=== PATIENT | male | born 1945 | race Caucasian/White ===

== ENCOUNTER 2019-01-31 13:29 | Emergency (ER) | payer BC, OTHER ==
[2019-01-31] MEDS ORDERED: LEVALBUTEROL 0.63 MG/3 ML NEB ONE (14:21)
[2019-01-31] MEDS ORDERED: LEVALBUTEROL 1.25 MG/3 ML NEB ONE (14:22)
[2019-01-31 14:32] LABS: Absolute Lymphocytes (CBC) 1.4 K/uL (0.7-4.9); Absolute Monocytes 0.7 K/uL (0.1-1.3); Absolute Neutrophil 6.8 K/uL (1.8-8.0); Eosinophils % 0.9 % (0-4.4); Hematocrit 42.5 % (39.6-49.0); Lymphocytes % 15.6 % (15.3-44.8); MPV 8.5 fL (7.6-11.3); Monocytes % 7.9 % (3.3-12.3); RBC Red Blood Cell Count 5.35 M/uL (4.33-5.43)
[2019-01-31 14:33] LABS: Protime INR 0.94
--- NOTE | 2019-01-31 14:41 | RAD REPORT ---
EXAM DESCRIPTION: RAD - Chest Single View - 01/31/2019 2:30 pm CLINICAL HISTORY: SOB Chest pain. COMPARISON: Chest Pa And Lat (2 Views) dated 12/26/2018; Chest Pa And Lat (2 Views) dated 11/25/2018; Thorax W/ Con dated 11/25/2018 FINDINGS: Portable technique limits examination quality. The right hemidiaphragm is elevated with atelectasis in the right lung base. The left lung is grossly clear. The heart is normal in size. No displaced fractures.
[2019-01-31 15:02] LABS: ALT/SGPT 48 U/L (12-78); AST/SGOT 36 U/L (15-37); Albumin 3.6 g/dL (3.4-5.0); Alkaline Phosphatase 111 U/L (45-117); BUN Blood Urea Nitrogen 11 mg/dL (7-18); Bicarbonate 26 mmol/L (21-32); Bilirubin Direct 0.1 mg/dL (0-0.2); Bilirubin Total 0.6 mg/dL (0.2-1.0); Glucose Level 178 mg/dL (74-106); NT PRO-BNP 57 pg/mL (<125); Protein, Total 7.5 g/dL (6.4-8.2); Sodium Level 139 mmol/L (136-145); Troponin (Emerg Dept Use Only) < 0.02 ng/mL (0.0-0.045)
--- NOTE | 2019-01-31 15:02 | EKG ---
Test Date: 2019-01-31 Test Time: 13:41:21 Health Officer: LISANDRA MEASUREMENT RESULTS: Intervals: Rate: 99 AK: 184 QRSD: 132 QT: 370 QTc: 474 [place]: P: 41 AK: 184 QRS: 55 T: 16 INTERPRETIVE STATEMENTS: Normal sinus rhythm Right bundle branch block Abnormal ECG No previous ECG available for comparison Electronically Signed On 01-31-19 15:01:40 CDT by Sae Miles
--- OUTSIDE RECORDS SUMMARY | 2019-01-31 15:12 | XMS REPORT ---
:1945 [facility] Address [address] [place] [address] Dr. Johnson [address] [place] [id number] Care Team Providers Name Role Phone Unavailable Unavailable Unavailable Problems This patient has no known problems. Allergies, Adverse Reactions, Alerts This patient has no known allergies or adverse reactions. Medications This patient has no known medications.
--- NOTE | 2019-01-31 17:41 | RAD REPORT ---
EXAM DESCRIPTION: CT - Chest For Pe Angio - 01/31/2019 4:59 pm CLINICAL HISTORY: sob COMPARISON: November 2018. TECHNIQUE: Dynamically enhanced axial 3 mm thick images of the chest were obtained during administra tion of <100> mL Isovue 370 IV contrast. Coronal and oblique reconstruction images were generated and reviewed. Exam utilizes a protocol for optimal evaluation of pulmonary arterial tree. Maximum intensity projections 3D imaging was utilized All CT scans are performed using dose optimization technique as appropriate and may include automated exposure control or mA/KV adjustment according to patient size. FINDINGS: A pulmonary embolus is not seen. The proximal descending thoracic aorta measures 4 centimeters. A pleural effusion is not seen. A pericardial effusion is not seen. Right lower lobe opacity. Fatty liver IMPRESSION: Negative for a pulmonary embolism. Right lower lobe opacity likely representing atelectasis. This should be followed until is clear to h elp exclude a post obstructive process/underlying mass
--- NOTE | 2019-01-31 17:53 | ER ---
Nurse's Notes [facility] Name: Ezequiel Tomlinson Age: 73 yrs Sex: Male : 1945 Arrival Date: 01/31/2019 Time: 13:38 Bed 7 Private MD: Diagnosis: Shortness of breath Presentation: 01/31 14:00 Acuity: ROBB 2 ae4 14:22 Presenting complaint: Patient states: Patient states he returned to work today after a ae4 week off and was told he was "laid off" and began having shortness of breath. Transition of care: patient was not received from another setting of care. Onset of symptoms was January 31, 2019 at 13:30. Risk Assessment: Do you want to hurt yourself or someone else? Patient reports no desire to harm self or others. Initial Sepsis Screen: Does the patient meet any 2 criteria? HR > 90 bpm. No. Patient's initial sepsis screen is negative. Does the patient have a suspected source of infection? No. Patient's initial sepsis screen is negative. Care prior to arrival: None. 14:22 Method Of Arrival: EMS: [facility] ae4 Triage Assessment: 14:51 General: Appears uncomfortable, Behavior is anxious. Respiratory: Reports shortness of ae4 breath at rest on exertion Onset: The symptoms/episode began/occurred suddenly, Historical: - Allergies: 13:59 No Known Allergies; ae4 - PMHx: 13:59 Diabetes - NIDDM; Pneumonia; neck surgery; back surgery; ae4 - Immunization history:: Adult Immunizations. - Social history:: Smoking status: . - Ebola Screening: : Patient denies travel to an Ebola-affected area in the 21 days before illness onset. Screenin:57 Abuse screen: Denies threats or abuse. Nutritional screening: No deficits noted. tw2 Tuberculosis screening: No symptoms or risk factors identified. Fall Risk Secondary diagnosis (15 points) impaired mobility. Assessment: 14:06 Reassessment: Upon completing the IV, patient stated the industrial safety engineer was probably ae4 waiting. Nurse asked if he would like safety employee to come back to exam room, and patient replied, "No, I think she can wait out there awhile.". 14:10 Reassessment: Entered the room and noted industrial safety engineer at bedside next to patient. I aj stated "Are you family or are you a industrial safety engineer?" civil engineering design draftsperson stated "I'm safety but he wants me in here." civil engineering design draftsperson then turned to patient and stated in a loud manner "Do you want me in here? Do you want me to be in here? You can tell her you want me to stay." Patient did not make clear response. I stated to industrial safety engineer "we typically have safety people stay in the lobby to protect patient medical record privacy." civil engineering design draftsperson refused to leave at that point. I stated to industrial safety engineer that she "would have to wait in the lobby when the nurse or physician entered the room as it was a safety concern.". 14:18 General: Appears in no apparent distress. uncomfortable, Behavior is appropriate for ae4 age, anxious. Pain: Denies pain. Neuro: Level of Consciousness is awake, alert, obeys commands, Oriented to person, place, time, situation, Appropriate for age. Cardiovascular: Heart tones S1 S2 present Rhythm is sinus rhythm. GI: Abdomen is round Bowel sounds present X 4 quads. : Urine is clear. EENT: wears glasses.. Derm: Skin is pink, warm \\T\\ dry. Musculoskeletal: Reports fatigue. 14:18 Respiratory: Airway is patent Respiratory effort is even, Mildly labored. Fine crackles ae4 and wheezes MYNOR posterior lung areas. Right lower lobe diminished. 14:52 Reassessment: Nurse asked female Safety Employee to leave exam room to discuss plan of ae4 care with patient. Safety Employee left exam room and waited outside exam room. Nurse asked Safety Employee to wait in lobby. Safety Employee left ED out to lobby. 16:04 Reassessment: Patient updated on plan of care, patient states he is concerned about ae4 getting a ride home because the "safety gal got ticked off and left. She was supposed to be my ride home". Will notify charge nurse and provider. 18:28 Reassessment: Reassessment: Patient appears in no apparent distress at this time. ae4 Patient states feeling better. Vital Signs: 13:57 BP 167 / 101; Pulse 98; Resp 21; Temp 98.1(A); Pulse Ox 94% on 2 lpm NC; Pain 0/10; ae4 14:06 BP 133 / 83; Pulse 94; Resp 16; Pulse Ox 96% on 2 lpm NC; ae4 14:30 BP 153 / 92; Pulse 104; Resp 20 S; Pulse Ox 97% on 2 lpm NC; ae4 14:51 BP 131 / 81; Pulse 107; Resp 17; Pulse Ox 95% on 2 lpm NC; ae4 15:15 BP 117 / 83; Pulse 106; Resp 14; Pulse Ox 96% on 2 lpm NC; tw2 16:15 BP 123 / 79; Pulse 99; Resp 20; Pulse Ox 94% on 2 lpm NC; tw2 16:30 BP 122 / 77; Pulse 97; Resp 19 S; Pulse Ox 94% on 2 lpm NC; ae4 17:17 BP 124 / 85; Pulse 100; Resp 19; Pulse Ox 95% on R/A; ae4 18:29 BP 139 / 90; Pulse 102; Resp 19; Pulse Ox 95% on R/A; ae4 ED Course: 13:38 Patient arrived in ED. ae4 13:38 Placed in gown. Bed in low position. Call light in reach. front desk monitor on. Pulse ox tw2 on. NIBP on. 13:46 EKG done, by ag equipment field service technician. reviewed by Scott Capellan MD. sm3 13:54 Juan Ramon Kumari PA is PHCP. cp 13:54 Scott Capellan MD is Attending Physician. cp 13:55 Campos Leyva, EDYTA is Primary Nurse. ae4 13:58 Arm band placed on. EKG completed in triage. Results shown to MD. tw2 14:00 Triage completed. ae4 14:06 X-ray completed. Portable x-ray completed in exam room. Patient tolerated procedure sw well. 14:06 Inserted saline lock: 20 gauge in right antecubital area, using aseptic technique. ae4 Blood collected. 14:31 XRAY Chest (1 view) In Process Unspecified. EDMS 16:59 CT Chest For PE Angio In Process Unspecified. EDMS 17:13 Campos Leyva, RN is Primary Nurse. ae4 17:15 Patient moved back from CT. ae4 18:30 No provider procedures requiring assistance completed. IV discontinued, intact, ae4 bleeding controlled, No redness/swelling at site. Pressure dressing applied. Administered Medications: 14:07 Drug: Xopenex (3) 1.25 mg Route: Inhalation; ae4 14:55 Follow up: Response: Wheezing diminished; SOB decreased. ae4 17:51 Drug: predniSONE 40 mg Route: PO; ae4 18:30 Follow up: Response: No adverse reaction tw2 Intake: Outcome: 17:52 Discharge ordered by . cp 18:31 Discharged to home ambulatory. ae4 18:31 Condition: stable 18:31 Discharge instructions given to patient, Instructed on discharge instructions, follow up and referral plans. medication usage, Demonstrated understanding of instructions, Prescriptions given X 3. 18:32 Patient left the ED. ae4 Signatures: Dispatcher [employer] EDJacqui Sanchez, RN RN Jasmina Mendoza Corey, PA PA cp Wise, Tara, RN RN tw2 Maria Isabel Alex sm3 Campos Leyva RN RN ae4 Corrections: (The following items were deleted from the chart) 15:01 14:18 Respiratory: Airway is patent Respiratory effort is even, Mildly labored. Fine ae4 crackles and wheezes MYNOR posterior lung areas. ae4 15:32 14:00 Reassessment: Entered the room and noted industrial safety engineer at bedside next to aj patient. I stated "Are you family or are you a industrial safety engineer?" civil engineering design draftsperson stated "I'm safety but he wants me in here." civil engineering design draftsperson then turned to patient and stated in a loud manner "Do you want me in here? Do you want me to be in here? You can tell her you want me to stay." Patient did not make clear response. I stated to industrial safety engineer "we typically have safety people stay in the lobby to protect patient medical record privacy." civil engineering design draftsperson refused to leave at that point. I stated to industrial safety engineer that she "would have to wait in the lobby when the nurse or physician entered the room as it was a safety concern." aj
--- NOTE | 2019-01-31 17:53 | EDPHYS ---
Physician Documentation [facility] Name: Ezequiel Tomlinson Age: 73 yrs Sex: Male : 1945 Arrival Date: 01/31/2019 Time: 13:38 Bed 7 Private MD: ED Physician Scott Capellan HPI: 01/31 14:30 This 73 yrs old Male presents to ER via EMS with complaints of Shortness Of cp Breath. 14:30 The patient has shortness of breath at rest. Onset: The symptoms/episode began/occurred cp suddenly, today, while at work. 14:30 Duration: The symptoms are continuous, improving. Associated signs and symptoms: cp Pertinent negatives: chest pain, productive cough, diaphoresis, dizziness, fever, hemoptysis, numbness in extremities, vomiting. Severity of symptoms: in the emergency department the symptoms have improved mildly. The patient has experienced similar episodes in the past, chronically. Patient brought to ED by EMS after reporting shortness of breath. Patient reports he was in office at work when he was told that he was being laid off. Another worker then observed patient having difficulty breathing and called EMS. 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 Historical: - Allergies: 13:59 No Known Allergies; ae4 - PMHx: 13:59 Diabetes - NIDDM; Pneumonia; neck surgery; back surgery; ae4 - Immunization history:: Adult Immunizations. - Social history:: Smoking status: . - Ebola Screening: : Patient denies travel to an Ebola-affected area in the 21 days before illness onset. ROS: 14:35 Constitutional: Negative for body aches, chills, fever, poor PO intake. cp 14:35 Eyes: Negative for injury, pain, redness, and discharge. cp 14:35 ENT: Negative for drainage from ear(s), ear pain, sinus pain, sore throat, difficulty swallowing, difficulty handling secretions. 14:35 Neck: Negative for pain with movement, pain at rest, stiffness. 14:35 Cardiovascular: Negative for chest pain, edema, palpitations. 14:35 Respiratory: Positive for shortness of breath, at rest. Negative for cough, wheezing. 14:35 Abdomen/GI: Negative for abdominal pain, nausea, vomiting, and diarrhea, constipation, black/tarry stool, rectal bleeding. 14:35 Back: Negative for pain at rest, pain with movement. 14:35 : Negative for urinary symptoms. 14:35 Skin: Negative for cellulitis, rash. 14:35 Neuro: Negative for altered mental status, dizziness, headache, syncope, weakness. 14:35 All other systems are negative. Exam: 13:50 ECG was reviewed by the Attending Physician. cp 14:40 Constitutional: The patient appears in no acute distress, alert, awake, cp non-diaphoretic, non-toxic, well developed, well nourished. 14:40 Head/Face: Normocephalic, atraumatic. Eyes: Pupils equal round and reactive to light, cp extra-ocular motions intact. Lids and lashes normal. Conjunctiva and sclera are non-icteric and not injected. Cornea within normal limits. Periorbital areas with no swelling, redness, or edema. ENT: Nares patent. No nasal discharge, no septal abnormalities noted. Tympanic membranes are normal and external auditory canals are clear. Oropharynx with no redness, swelling, or masses, exudates, or evidence of obstruction, uvula midline. Mucous membranes moist. Chest/axilla: Normal chest wall appearance and motion. Nontender with no deformity. No lesions are appreciated. 14:40 Cardiovascular: Rate: tachycardic, Rhythm: regular, Pulses: Pulses are 2+ in right radial artery and left radial artery. Edema: is not appreciated, JVD: is not appreciated. 14:40 Respiratory: the patient does not display signs of respiratory distress, Respirations: labored breathing, is not present, accessory muscle usage, is absent, intercostal retractions, are absent, shallow respirations, that is mild, Breath sounds: decreased breath sounds, that are mild, are located in both bases, stridor, is not appreciated, wheezing: is not appreciated. 14:40 Abdomen/GI: Inspection: abdomen appears normal, Palpation: abdomen is soft and non-tender, in all quadrants. 14:40 Back: pain, is absent, ROM is normal. 14:40 Skin: no rash present. 14:40 Neuro: Orientation: to person, place \T\ time. Mentation: is normal, Cerebellar function: is grossly normal, Motor: moves all fours, strength is normal, Sensation: is normal. Vital Signs: 13:57 BP 167 / 101; Pulse 98; Resp 21; Temp 98.1(A); Pulse Ox 94% on 2 lpm NC; Pain 0/10; ae4 14:06 BP 133 / 83; Pulse 94; Resp 16; Pulse Ox 96% on 2 lpm NC; ae4 14:30 BP 153 / 92; Pulse 104; Resp 20 S; Pulse Ox 97% on 2 lpm NC; ae4 14:51 BP 131 / 81; Pulse 107; Resp 17; Pulse Ox 95% on 2 lpm NC; ae4 15:15 BP 117 / 83; Pulse 106; Resp 14; Pulse Ox 96% on 2 lpm NC; tw2 16:15 BP 123 / 79; Pulse 99; Resp 20; Pulse Ox 94% on 2 lpm NC; tw2 16:30 BP 122 / 77; Pulse 97; Resp 19 S; Pulse Ox 94% on 2 lpm NC; ae4 17:17 BP 124 / 85; Pulse 100; Resp 19; Pulse Ox 95% on R/A; ae4 18:29 BP 139 / 90; Pulse 102; Resp 19; Pulse Ox 95% on R/A; ae4 MDM: 13:55 Patient medically screened. cp 14:30 Differential diagnosis: asthma, Bronchitis Chronic Obstructive Pulmonary Disease cp Myocardial Infarction pneumonia, Pneumothorax pulmonary edema, Pulmonary Embolism Unstable Angina. 17:52 Data reviewed: vital signs, nurses notes, lab test result(s), EKG, radiologic studies, cp CT scan, plain films. 17:52 Test interpretation: by ED physician or midlevel provider: ECG, plain radiologic cp studies. Counseling: I had a detailed discussion with the patient and/or guardian regarding: the historical points, exam findings, and any diagnostic results supporting the discharge/admit diagnosis, lab results, radiology results, the need for outpatient follow up, a family practitioner, to return to the emergency department if symptoms worsen or persist or if there are any questions or concerns that arise at home. Response to treatment: the patient's symptoms have markedly improved after treatment. ED course: VSS. Patient reports symptoms improved. Will discharge to home for continued monitoring. 01/31 13:55 Order name: Basic Metabolic Panel; Complete Time: 15:05 cp 01/31 13:55 Order name: CBC with Diff; Complete Time: 15:45 cp 01/31 15:45 Interpretation: Normal except: MCV 79.5; MCH 25.7; RDW 16.9; WHITNEY% 74.6. 05/ 13:55 Order name: LFT's; Complete Time: 15:05 01/31 13:55 Order name: Magnesium; Complete Time: 15:05 01/31 13:55 Order name: NT PRO-BNP; Complete Time: 15:05 01/31 13:55 Order name: PT-INR; Complete Time: 15:05 01/31 13:55 Order name: Troponin (emerg Dept Use Only); Complete Time: 15:05 01/31 13:55 Order name: XRAY Chest (1 view); Complete Time: 15:05 01/31 13:55 Order name: EKG; Complete Time: 13:56 01/31 13:55 Order name: Cardiac monitoring; Complete Time: 13:57 01/31 15:05 Order name: D-Dimer; Complete Time: 17:44 01/31 15:53 Order name: CT Chest For PE Angio; Complete Time: 17:44 01/31 17:45 Interpretation: Report reviewed. 01/31 13:55 Order name: EKG - Nurse/Tech; Complete Time: 14:17 01/31 13:55 Order name: IV Saline Lock; Complete Time: 14:18 01/31 13:55 Order name: Labs collected and sent; Complete Time: 14:18 01/31 13:55 Order name: O2 Per Protocol; Complete Time: 14:18 01/31 13:55 Order name: O2 Sat Monitoring; Complete Time: 14:18 cp EC:50 Rate is 99 beats/min. Rhythm is regular. OR interval is normal. QRS interval is cp prolonged at 132 msec. QT interval is normal. Interpreted by me. Reviewed by me. Administered Medications: 14:07 Drug: Xopenex (3) 1.25 mg Route: Inhalation; ae4 14:55 Follow up: Response: Wheezing diminished; SOB decreased. ae4 17:51 Drug: predniSONE 40 mg Route: PO; ae4 18:30 Follow up: Response: No adverse reaction tw2 Disposition: 01/31/19 17:52 Discharged to Home. Impression: Shortness of breath. - Condition is Stable. - Discharge Instructions: Shortness of Breath, Aspirin and Your Heart. - Prescriptions for Prednisone 20 mg Oral Tablet - take 2 tablet by ORAL route once daily for 4 days start afternoon of 02-01-2019; 8 tablet. Zithromax Z- Alphonse 250 mg Oral Tablet - take 1 tablet by ORAL route as directed for 5 days Day 1 - take two (2) tablets one time. Day 2, 3, 4 , 5 take one (1) tablet once daily.; 6 tablet. Albuterol Sulfate 90 mcg/actuation - inhale 1-2 puff by INHALATION route every 4-6 hours; 1 Inhaler. - Medication Reconciliation Form, Thank You Letter, Antibiotic Education, Prescription Opioid Use form. - Follow up: Private Physician; When: 2 - 3 days; Reason: Recheck today's complaints. - Problem is new. - Symptoms have improved. Addendum: 02/03/2019 06:58 Co-signature as Attending Physician, Scott Capellan MD I agree with the assessment and k dr plan of care. Signatures: Dispatcher [employer] EDMS Scott Capellan MD MD kdr Juan Ramon Kumari PA PA cp Krista Olvera RN RN tw2 Campos Leyva RN RN ae4 Corrections: (The following items were deleted from the chart) 01/31 18:32 17:52 01/31/2019 17:52 Discharged to Home. Impression: Shortness of breath. Condition ae4 is Stable. Forms are Medication Reconciliation Form, Thank You Letter, Antibiotic Education, Prescription Opioid Use. Follow up: Private Physician; When: 2 - 3 days; Reason: Recheck today's complaints. Problem is new. Symptoms have improved. cp
[2019-01-31] MEDS ORDERED: predniSONE 20 MG TAB ONE (18:03)
== END 2019-01-31 18:32 | disposition home or self-care (01) ==
LOC: ER 13:29
DX: R06.02 Shortness of breath (principal)
CPT/HCPCS: 36415; 71045; 71275; 80048; 80076; 83735; 83880; 84484; 85025; 85379; 85610; 93005; 99285; J7512; Q9967